=== PATIENT | female | born 1945 | race Caucasian/White ===

== ENCOUNTER 2016-09-18 10:50 | Emergency (ER) | payer OTHER ==
[~2016-09-18] VITALS: Ht 157.5 cm; Wt 72.0 kg
[~2016-09-18 10:50] MED LIST: ACET500C5 PO; ACYC800T57 PO; BENA5TAB2 PO; CYAN50TA PO; GLIP5TAB13 PO; LEVO500T72 PO; MECL25TA2 PO; PRED20TA PO
[2016-09-18 10:51] VITALS: Ht 157.5 cm; Wt 72.0 kg
--- NOTE | 2016-09-18 11:08 | ERD ---
ER Documentation Chief Complaint Date/Time DATE: 09/18/16 TIME: 11:08 Chief Complaint right hip pain s/p fall a week ago, no ko HPI 71-year-old female presents emergency department for right hip pain. Stated she fell twice 2 weeks ago, landed on her right hip. Went to her primary care physician last Wednesday and no diagnostic imaging was done, prescribed with ibuprofen. Daughter stated that patient able to walk but mildly limping. She also stated that the reason why she came here in the emergency department was to have an x-ray. Denies headache, loss of consciousness, dizziness, blurry vision, changes in vision, photophobia, facial pain, ear pain, throat pain, difficulty swallowing, neck pain, shoulder pain, chest pain, cough, hemoptysis, abdominal pain, back pain, loss of appetite, nausea, vomiting, hematochezia, diarrhea, constipation, urinary symptoms, , the possibility of being , bladder and bowel incontinences, extremity tenderness, numbness or tingling sensation, recent travel, recent exposure to illness, recent antibiotic use in the last 3 months, fever, chills. Allergy: No known drug allergies. PMH: Diabetes, hypertension, hyperlipidemia. Family medical history: Denies. Medications: Metformin, simvastatin. Surgery: Cholecystectomy. Primary Social History: Retired. Denies smoking, use of alcohol, use of illegal drugs. ROS All systems reviewed and are negative except as per history of present illness. Medications Home Meds Active Scripts Tramadol HCl (Tramadol HCl) 50 Mg Tablet, 50 MG PO Q4 Y for PAIN, #20 TAB Prov:NICO POPE 09/18/16 Acetaminophen* (Tylophen*) 500 Mg Capsule, 1 CAP PO Q6H Y for PAIN AND OR ELEVATED TEMP, #20 CAP Prov:ASHLEY COLLINS NP 11/13/15 Levofloxacin* (Levaquin*) 500 Mg Tablet, 500 MG PO DAILY for 7 Days, TAB Prov:ASHLEY COLLINS NP 11/13/15 Meclizine Hcl* (Antivert*) 25 Mg Tablet, 25 MG PO Q6H Y for DIZZINESS, #20 TAB Prov:ASHLEY COLLINS NP 11/13/15 Prednisone* (Prednisone*) 20 Mg Tab, 60 MG PO DAILY for 5 Days, TAB Prov:AZUCENA MCCOY 10/31/15 Acyclovir* (Zovirax*) 800 Mg Tablet, 800 MG PO 5 TIMES DAILY for 7 Days, TAB Prov:AZUCENA MCCOY 10/31/15 Reported Medications Cyanocobalamin* (Vitamin B-12*) 50 Mcg Tablet, 50 MCG PO DAILY, TAB 10/31/15 Benazepril Hcl* (Benazepril Hcl*) 5 Mg Tablet, 5 MG PO DAILY, #30 TAB 10/31/15 Glipizide* (Glipizide*) 5 Mg Tablet, 5 MG PO BID, TAB 10/31/15 Allergies Allergies: Coded Allergies: ibuprofen (Verified Allergy, Severe, 10/31/15) PMhx/Soc History of Surgery: No Anesthesia Reaction: No Hx Neurological Disorder: No Hx Respiratory Disorders: Yes (asthma) Hx Cardiac Disorders: Yes (HTN) Hx Psychiatric Problems: No Hx Miscellaneous Medical Probl: Yes (dm, arthritis) Hx Alcohol Use: No Hx Substance Use: No Hx Tobacco Use: No Smoking Status: Never smoker Physical Exam Vitals Vital Signs Date Time Temp Pulse Resp B/P Pulse Ox O2 Delivery O2 Flow Rate FiO2 09/18/16 13:38 98.3 71 18 173/82 98 Room Air 09/18/16 10:51 98.2 83 18 184/93 99 Physical Exam CONSTITUTIONAL: Well-appearing; well-nourished; in no apparent distress. HEAD: Normocephalic; atraumatic. EYES: Conjunctiva clear, sclera non-icteric, EOM intact. PERRL Ears: Hearing intact. EACs clear, TMs non-bulging, non-inflamed, translucent & mobile, ossicles normal appearance, No obstructions, no erythema, no discharges Nose: No obstructions. No polyps. No external lesions. Mucosa non-inflamed. No external lesions, septum and turbinates normal. No rhinorrhea. No discharges. Frontal sinus is non-tender to palpation. Maxillary sinus is non-tender to palpation. MOUTH: Moist mucous membranes, no lesion, no obstructions, no vesicles, no thrush, patent airway Throat: Uvula in midline. Right tonsil is +1 with no erythema, no exudate. Left tonsil is +1 with no erythema, no exudate. Tolerating secretions well. Good gag reflex. Patent airway. Neck: Supple, without lesions, bruits, or adenopathy. No mass. Thyroid non- enlarged and non-tender to palpation. CHEST: Symmetrical chest. Respirations even and not labored. No retractions noted. CARDIOVASCULAR: Normal S1, S2. RRR. No murmurs, gallops. RESPIRATORY: Normal chest excursion with respiration; breath sounds clear and equal bilaterally; no wheezes, rhonchi, or rales. Breathing even and unlabored. Speaking in clear, full, and complete sentences w/ ease. ABDOMEN: Normal bowel sounds normal. Soft, round, non-distended, non-guarding, no tenderness, no rebound, no organomegaly, no masses, no pulsating abdominal mass. No hernia. No peritoneal signs. : No CVA tenderness. BACK: Symmetrical shoulder. Spine is midline without deformity, tenderness. No evidence of trauma or deformity. PELVIS: Stable pelvis. No evidence of trauma or deformity. Stable hips/pelvis. MUSCULOSKELETAL: Normal gait and station. No misalignment, asymmetry, crepitation, defects, tenderness, masses, effusions, decreased range of motion, instability, atrophy or abnormal strength or tone in the head, neck, spine, ribs , pelvis or extremities. Stable and unremarkable hips with good and full range of motion and has no tenderness/discoloration. There is no shortening of legs. Good and full range of motion of bilateral knees. Bilateral ankles/feet are unremarkable with good and full range of motion. Good and full range of motion of neck and spine. There is no C-spine/T-spine/L-spine swelling/deformity/ discoloration. No calf tenderness. NEUROVASCULAR: Distal pulses are present. Pedal pulse are present, equal, and normal. Capillary refills are < 2 seconds. NEUROLOGIC: Alert and oriented x4. Speaks full and clear sentences. Cranial Nerves II-XII normal. Sensation to pain, touch, and proprioception normal. Grossly unremarkable. No neurologic deficits. Romberg test is negative. PSYCHOLOGICAL: The patients mood and manner are appropriate. No hallucinations , delusions. Not SI. Not HI. Has the capacity to decide for self SKIN: Normal for age and ethnicity; warm; dry; good turgor; no apparent lesions or exudates. No rashes, hives, discoloration. Intact. Results 24 hrs Laboratory Tests Test 09/18/16 11:22 Urine Color LT. YELLOW Urine Clarity CLEAR Urine pH 5.5 Urine Specific [place] 1.010 Urine Ketones NEGATIVE Urine Nitrite NEGATIVE Urine Bilirubin NEGATIVE Urine Urobilinogen 0.2 E.U./dL Urine Leukocyte Esterase NEGATIVE Urine Hemoglobin NEGATIVE Urine Glucose >=1000% Urine Total Protein NEGATIVE Current Medications Medications (Trade) Dose Ordered Sig/Vargas Route PRN Reason Start Time Stop Time Status Last Admin Dose Admin Ketorolac Tromethamine (Toradol) 15 mg ONCE STAT IM 09/18/16 12:55 09/18/16 12:56 DC 09/18/16 13:04 Procedures/MDM Examination: Please see physical examination. Disease process, medical treatment was explained to the patient and family member. They verbalized understanding and agreed with the diagnostic tests, medical treatment, and follow-up care. Radiology: X-ray of the right hip Impression: No visualized traumatic injury. Osteopenia. Moderate osteoarthritis of the right hip. Vascular calcifications. If there is high clinical suspicion for traumatic injury, further evaluation with CT should be considered. Urinalysis: Reviewed. Treatment: Toradol IM. Re-evaluation: Denies headache, dizziness, blurred vision, neck pain, shoulder pain, chest pain, back pain, abdominal pain, nausea. No episode of emesis in the emergency department. There is no right upper/right lower/epigastric/left upper/left lower abdominal tenderness on light duty palpation. No CVA tenderness. No peritoneal signs. Stable hips. Has good and full range of motion of bilateral hips. There is no shortening of leg bilaterally. Patient able to walk comfortably and able to bear weight to right lower extremity. Stated that she feels much better at this time. Cranial nerves II to XII intact. No neurological deficits. No neurovascular deficits. Consultation: Case was discussed with supervising emergency room physician, Dr. Jorge Murdock who agreed with my medical decision making to discharge the patient, manage the pain at home and follow-up with PCP in the next 24-48 hours. Differential diagnosis: Fracture versus dislocation versus contusion versus sprain Medical decision makin-year-old female presents emergency department for right hip pain. Stated she fell twice 2 weeks ago, landed on her right hip. Went to her primary care physician last Wednesday and no diagnostic imaging was done, prescribed with ibuprofen. Daughter stated that patient able to walk but mildly limping. She also stated that the reason why she came here in the emergency department was to have an x-ray. Patient's complaint, patient history about her complaint, my physical findings, diagnostic test results, my reevaluation are consistent my final diagnosis of hip pain. During my reevaluation, patient demonstrates ability to walk with steady gait and without pain bilateral hips. She was also able to bear weight on the right hip/lower extremity. She also stated that she feels much better at this time and is ready to go home. Patient and family member agreed to be discharged and to follow-up with her primary care physician. Medications prescribed are the following: Tramadol. Patient and family member are made aware of the side effects and adverse reactions of the medications prescribed. Instructed on when to seek emergent and medical attention in case allergic/anaphylactic reactions or severe side effects and or adverse reactions to medications. Patient and family member verbalized understanding. Patient instructed Instructed to follow-up with his PCP in 24-48 hours. Patient was also instructed that she might have more imagings in the long run if her symptoms progresses or continues. She verbalized understanding. Instructed to Call 911 for chest pain, shortness of breath. Advised to come back here in ED as soon as possible for severity of symptoms which includes but not limited to: any new symptoms; shortness of breath/difficulty of breathing; cardiovascular changes; severe gastrointestinal symptoms; signs and symptoms of bleeding and or infection; signs of compartment syndrome/neurovascular changes; neurological changes/deficits. Patient and family member verbalized understanding. Upon discharge, patient is alert and oriented x 4, speaks full and clear sentences, denies pain, has no neurological deficits, has no neurovascular deficits, difficulty of breathing. Breathing even and unlabored. Lung sounds are clear to auscultation. Not in distress. Appears comfortable. Ambulatory with steady gait. Appears satisfied with care provided here in ED. Departure Diagnosis: Primary Impression: Hip pain Condition: Stable Additional Instructions: Instructed to follow-up with his PCP in 24-48 hours. Instructed to Call 911 for chest pain, shortness of breath. Advised to come back here in ED as soon as possible for severity of symptoms which includes but not limited to: any new symptoms; shortness of breath/difficulty of breathing; cardiovascular changes; severe gastrointestinal symptoms; signs and symptoms of bleeding and or infection; signs of compartment syndrome/neurovascular changes; neurological changes/deficits. Patient and family member verbalized understanding. NICO POPE Sep 18, 2016 11:08
[2016-09-18 11:40] LABS: ADD UMIC NO; UR BILIRUBIN (Dip) NEGATIVE (NEGATIVE); UR BLOOD (Dip) NEGATIVE (NEGATIVE); UR CLARITY CLEAR (CLEAR); UR COLOR LT. YELLOW (YELLOW); UR GLUCOSE (Dip) >=1000 % (NEGATIVE); UR KETONES (Dip) NEGATIVE (NEGATIVE); UR LEUKOCYTE ESTERASE (Dip) NEGATIVE (NEGATIVE); UR NITRITE (Dip) NEGATIVE (NEGATIVE); UR TOTAL PROTEIN (Dip) NEGATIVE (NEGATIVE); UR UROBILINOGEN (Dip) 0.2 E.U./dL (0.1-1.0)
--- NOTE | 2016-09-18 12:26 | RADRPT ---
PROCEDURE: XR Hip 2 Views. CLINICAL INDICATION: Right hip pain. TECHNIQUE: AP and frog lateral views of the right hip were performed. COMPARISON: None. FINDINGS: Diffuse osteopenia is identified. The osseous structures appear intact. No destructive bony lesion s are observed. Moderate narrowing of the right hip joint is seen. Vascular calcifications are see n in the left thigh. Additional scattered soft tissue calcifications are seen in the soft tissues o f the left thigh. IMPRESSION: No visualized traumatic injury. Osteopenia. Moderate osteoarthritis of the right hip. Vascular calcifications. If there is high clinical suspicion for traumatic injury, further evaluation with CT should be consi dered. RPTAT: AA .Isidro Brothers MD, MD Date Time Electronically viewed and signed by .Isidro Brothers MD, on 09/18/2016 12:26 .P/
[2016-09-18] MEDS ORDERED: KETOROLAC 15 MG INJ IM STA (12:55)
[2016-09-18] MEDS ORDERED: TRAM50TA2 PO (13:25)
[2016-09-18 13:38] VITALS: BP 173/82; PULSE 71; RESP 18; TEMP 98.3
== END 2016-09-18 13:38 | disposition home or self-care (01) ==
LOC: FTE 10:50
DX: M25.551 Pain in right hip (principal); I10 Essential (primary) hypertension; E11.9 Type 2 diabetes mellitus without complications; J45.909 Unspecified asthma, uncomplicated; Z79.84 Long term (current) use of oral hypoglycemic drugs
CPT/HCPCS: 73510; 81003; J1885; 96372

== ENCOUNTER 2016-10-19 11:32 | Emergency (ER) | payer OTHER ==
[~2016-10-19] VITALS: Wt 68.5 kg
[~2016-10-19 11:32] MED LIST changes: +TRAM50TA2 PO
[2016-10-19] MEDS ORDERED: LIDOCAINE 2% (MDV) 20 ML INJ INJ ONE (12:00)
[2016-10-19] MEDS ORDERED: HYDROCODONE/APAP (5/325) TAB PO ONE (12:00)
[2016-10-19] MEDS ORDERED: SULF1TAB31 PO (12:53)
[2016-10-19] MEDS ORDERED: CEPH-443 PO (12:53)
[2016-10-19] MEDS ORDERED: HYDR-906 PO (12:53)
--- NOTE | 2016-10-19 13:05 | ERD ---
ER Documentation Chief Complaint Date/Time DATE: 10/19/16 TIME: 13:02 Chief Complaint 1 WEEK OF PAIN AND REDNESS TO RIGHT GREAT TOE. DRESING INTACT HPI 71-year-old female with history of diabetes, hypertension presents with the right great medial nail bed ingrown toenail. Patient reports her swelling and redness gradually increasing. Denies trauma or fevers or chills. ROS All systems reviewed and are negative except as per history of present illness. Medications Home Meds Active Scripts Hydrocodone/Acetaminophen (Flushing 5-325 Tablet) 1 Each Tablet, 1 TAB PO Q6H Y for PAIN, #7 TAB Prov:DOMENICO BARROW PA-C 10/19/16 Sulfamethoxazole/Trimethoprim* (Bactrim Ds* Tablet) 1 Each Tablet, 1 TAB PO BID , #14 TAB Prov:DOMENICO BARROW PA-C 10/19/16 Cephalexin* (Keflex*) 500 Mg Capsule, 500 MG PO QID for 7 Days, CAP Prov:DOMENICO BARROW PA-C 10/19/16 Tramadol HCl (Tramadol HCl) 50 Mg Tablet, 50 MG PO Q4 Y for PAIN, #20 TAB Prov:NICO POPE 09/18/16 Acetaminophen* (Tylophen*) 500 Mg Capsule, 1 CAP PO Q6H Y for PAIN AND OR ELEVATED TEMP, #20 CAP Prov:ASHLEY COLLINS NP 11/13/15 Levofloxacin* (Levaquin*) 500 Mg Tablet, 500 MG PO DAILY for 7 Days, TAB Prov:ASHLEY COLLINS NP 11/13/15 Meclizine Hcl* (Antivert*) 25 Mg Tablet, 25 MG PO Q6H Y for DIZZINESS, #20 TAB Prov:ASHLEY COLLINS NP 11/13/15 Prednisone* (Prednisone*) 20 Mg Tab, 60 MG PO DAILY for 5 Days, TAB Prov:AZUCENA MCCOY 10/31/15 Acyclovir* (Zovirax*) 800 Mg Tablet, 800 MG PO 5 TIMES DAILY for 7 Days, TAB Prov:AZUCENA MCCOY 10/31/15 Reported Medications Cyanocobalamin* (Vitamin B-12*) 50 Mcg Tablet, 50 MCG PO DAILY, TAB 10/31/15 Benazepril Hcl* (Benazepril Hcl*) 5 Mg Tablet, 5 MG PO DAILY, #30 TAB 10/31/15 Glipizide* (Glipizide*) 5 Mg Tablet, 5 MG PO BID, TAB 10/31/15 Allergies Allergies: Coded Allergies: ibuprofen (Verified Allergy, Severe, 10/31/15) PMhx/Soc History of Surgery: No Anesthesia Reaction: No Hx Neurological Disorder: No Hx Respiratory Disorders: No Hx Cardiac Disorders: No Hx Psychiatric Problems: No Hx Miscellaneous Medical Probl: No Hx Alcohol Use: No Hx Substance Use: No Hx Tobacco Use: No Smoking Status: Never smoker Physical Exam Vitals Vital Signs Date Time Temp Pulse Resp B/P Pulse Ox O2 Delivery O2 Flow Rate FiO2 10/19/16 11:35 97.9 83 21 168/81 95 Physical Exam Const: [] Head: Atraumatic Eyes: Normal Conjunctiva ENT: Normal External Ears, Nose and Mouth. Neck: Full range of motion..~ No meningismus. Resp: Clear to auscultation bilaterally Cardio: Regular rate and rhythm, no murmurs Abd: Soft, non tender, non distended. Normal bowel sounds Skin: No petechiae or rashes Back: No midline or flank tenderness Ext: No cyanosis, or edema Neur: Awake and alert Psych: Normal Mood and Affect Results 24 hrs Current Medications Medications (Trade) Dose Ordered Sig/Vargas Route PRN Reason Start Time Stop Time Status Last Admin Dose Admin Lidocaine (Xylocaine 2% (Mdv) 20 ml) 20 ml ONCE ONCE INJ 10/19/16 12:00 10/19/16 12:01 DC Acetaminophen/ Hydrocodone Bitart (Flushing (5/325)) 1 tab ONCE ONCE PO 10/19/16 12:00 10/19/16 12:01 DC 10/19/16 12:05 Procedures/MDM ED course: She was given Flushing for pain. Procedure: Ingrown Toenail removal: patient was verbally consented. Patient's great toe was prepped with Betadine. Digital block was done with lidocaine 1% without epinephrine, approximately 7 cc. Patient had good local anesthetic effect achieved. Foreceps were used to lift the nailbed, as well as scissors to cut just distal to the cuticle. Purulent drainage was also removed. Hemostat was used, was clamped onto the toenail, and flipped for removal. It was minor bleeding, hemostasis was achieved. Patient was neurovascularly intact postprocedure. a Clean dressing was applied, with bacitracin. Medical decision makin-year-old female presents with a right great toe ingrown toenail with paronychia. Patient is diabetic, will be covered with Keflex and Bactrim and Flushing for pain control. Excision was done secondary to infection, patient tolerated the procedure well and was neurovascularly intact as well. I have advised her to follow-up with a environmental remediation consultant outpatient, she was given a list of resources, she does have a primary care doctor and was advised that she likely needs a referral from them. Patient's blood pressure was elevated (>120/80) but appears stable without evidence of hypertension emergency or urgency. The patient was counseled about the risks of hypertension and urged to pursue outpatient monitoring and therapy within a week with their primary care physician. Departure Diagnosis: Primary Impression: Ingrown right big toenail Condition: Good Patient Instructions: Ingrown Toenail, Excised Referrals: STEFFANY RUEDA DPM, ERIC H. D.P.M. KOSARI, BABAK DPM Additional Instructions: Specialist:Usted tiene walter condicin mdica que requiere que tomi a un especialista dentro de los prximos 1-2 de leon.POR FAVOR,CON SIGALA SEGUIMIENTO DE PRIMARIA PHSICIAN refferal. SI USTED NO TIENE UN MDICO GENERAL Y / O USTED NO PUEDE PAGAR ford a un mdico,los siguientes cheema RECURSOS sido suministrado a usted. ES SIGALA RESPONSABILIDAD PARA SER VISTOS POR EL ESPECIALISTA: DOMENICO BARROW PA-C Oct 19, 2016 13:05
== END 2016-10-19 13:02 | disposition home or self-care (01) ==
LOC: FTE 11:32
DX: L60.0 Ingrowing nail (principal); I10 Essential (primary) hypertension; E11.9 Type 2 diabetes mellitus without complications; Z79.84 Long term (current) use of oral hypoglycemic drugs
CPT/HCPCS: 11765; Z7610